=== PATIENT | female | born 1985 | race Caucasian/White ===

== ENCOUNTER 2025-04-30 21:23 | Emergency (ER) | payer OTHER, SELFPAY ==
[2025-04-30 21:29] VITALS: BP 140/94
[2025-04-30 22:22] VITALS: BP 129/103
[2025-04-30 22:53] VITALS: BP 117/86
[2025-04-30 22:55] VITALS: BP 134/91
[2025-04-30 22:57] VITALS: BP 117/86; BP 134/91; BP 134/95; PULSE 79; PULSE 81; PULSE 85
[2025-04-30 23:00] VITALS: BP 124/85
[2025-05-01] VITALS: BP 108/81
[2025-05-01] MEDS: ANTIVERT 25 MG PO (00:26)
--- NOTE | 2025-05-01 00:32 | ED.GENMED ---
History of Present Illness
General
Chief Complaint: Dizziness
Source: patient
Exam Limitations: none
Time Seen by Provider: 04/30/25 21:37
Nursing documentation reviewed up to this point in time: agreed with
History of Present Illness
History of Present Illness:
The patient is a pleasant 39-year-old female reports a feeling of lightheadedness and dizziness intermittently over the last 3 days. Patient reports it is worse when she moves her head quickly and changes position. Patient describes it as a
feeling of dizziness and mild nausea. Patient denies headache, sore throat and recent fever. She denies vomiting and diarrhea. She denies vision changes. She denies ear pain and ringing of ears. Patient reports that about a week ago she was
given misoprostol to have a chemical . Patient reports that it has caused a 4 to 5 days of vaginal bleeding but she has not had any vaginal bleeding over the last 1 to 2 days. Patient was evaluated prior to the ED at urgent care today.
She underwent blood work which showed a normal hemoglobin of 13.4, normal white blood cell count, and normal platelet count. Patient had a normal sodium at urgent care. She did have a potassium that was low at 3.3. She had normal renal function.
Patient's urine test at urgent care was negative. Patient reports she was still a little nervous so decided to go to the ED.
Past History
Past History
ED Past Medical History: Other (Hypothyroid)
ED Past Surgical History: Other
Social History
Tobacco: Non-smoker
Alcohol: None
Drug: None
Personal: Other
Living: with family
Employment: Other
Family History
Family History: Other
Review of Systems
Review of Systems
Allergies reviewed?: Yes
All Other Systems: ROS reviewed and negative except as documented in HPI and ROS
Constitutional: Reports no symptoms
EENT: Reports no symptoms
Respiratory: Reports no symptoms
Cardiac: Reports syncope (Presyncopal)
ABD/GI: Reports no symptoms
: Reports bleeding
Musculoskeletal: Reports no symptoms
Skin: Reports no symptoms
Neurological: Reports dizzy
Endocrine: Reports no symptoms
Hematologic/Lymphatic: Reports no symptoms
Psychiatric: Reports no symptoms
Phy Exam
Physical Exam
Physical Exam:
Physical Exam
General: no apparent distress, not acutely ill. Normal and well-appearing
Neck: supple. no meningeal signs. normal psoterior pharynx. TMs appear normal bilaterally
Heart: s1/s2 regular rate and rhythm, no murmur. equal radial pulses.
Lungs: no acute respiratory distress. clear bilaterally
Abdomen: normal bowel sounds. not tender. no CVAT
Neuro: alert and oriented. no focal neurological deficits. Visual cavazos intact. Normal gait. Normal finger-nose. 5 out of 5 strength in all extremities
Skin: no rash
Psychiatric: well kept. interactive and cooperative
Extremities: no edema. no calf tenderness. negative homans. good distal pulses
Course
Orders/Labs/Results
Orders:
Orders
04/30/25 21:32
Electrocardiogram (*1) Urgent
Reason for Study: Vertigo / Dizzy
EKG- Treatment ONCE
05/01/25 00:17
Meclizine [Antivert] 25 mg PO NOW STA
Vital Signs
Initial and Last Documented VS:
Initial Vital Signs
Temp Pulse Resp BP Pulse Ox
98 F 71 18 140/94 100
04/30/25 21:29 04/30/25 21:29 04/30/25 21:29 04/30/25 21:29 04/30/25 21:29
Last Documented Vital Signs
Temp Pulse Resp BP Pulse Ox
98 F 80 22 108/81 99
04/30/25 21:29 05/01/25 00:00 05/01/25 00:00 05/01/25 00:00 05/01/25 00:00
MDM/Problems Addressed
Differential Diagnosis Includes:
Benign positional vertigo, symptomatic anemia due to vaginal bleeding, acute dehydration, orthostatic hypotension
MDM/Problems Addressed:
Patient presents with feelings of lightheadedness and dizziness
*Pulse Oximetry
Patient hypoxic: no
*EKG
Interpreted by ED Provider?: Yes
Interpretation: normal
Comparison EKG: no comparison EKG present
Rate: normal
Rhythm: sinus
Homer: normal axis
Interval: normal interval
QRS Pattern: normal QRS
Ischemia: no ischemia
*Electrician Manager Interpretation
Rate: normal
Interpretation: normal
Rhythm: sinus
*Critical Care Note
Total Time (30-74mins, 75-104mins- exclusive of procedures): Not Applicable
Data Reviewed
Review of Other/Old Records Reveals: Labs (Labs reviewed from urgent care which show a normal CBC and normal BMP with exception of a potassium of 3.3)
Source: patient
Patient Management
Social determinants of health affecting care: Living situation and Strong social support
Escalation/DeEscalation of care consider admission/obs:
Patient looks extremely well and comfortable. She has a steady gait and normal neurological exam therefore I do not think we need to do an emergent CT. Patient did not have tachycardia or become hypotensive with standing up, therefore, I do not
think she needs IV fluids and she is able to drink fluids. It is unclear with causing her dizziness. Given she describes a feeling of dizziness with intermittent nausea, I will treat her for possible vertigo.
ED Attending Note
-
Portions of this chart may have been created with voice recognition software.� Occasional wrong word or��sound alike� substitutions may have occurred due to the inherent limitations of voice recognition software.
Discharge Plan
Departure
Patient Disposition: Home (Routine Discharge)
Date of Disposition: 05/01/25
Time of Disposition: 00:17
Patient with high blood pressure during this ER visit?: Yes
Condition: Good
Covid-19: Not Applicable
Discharge Problem:
Dizziness
Instructions: Dizziness, BLOOD PRESSURE
Prescriptions:
New
meclizine 25 mg tablet
25 mg PO BID PRN (Reason: dizziness) Qty: 7 0RF
Referrals:
UNKNOWN,NO INTERVIEW [Family Provider]
Activity Restrictions/Additional Instructions:
Follow-up with your primary care doctor in 2 to 3 days if you are not feeling better
Interventions
Interventions:
*Risk Screen - Suicide Last Done: 04/30/25 22:00
*General Assessment Last Done: 04/30/25 22:00
*Neglect/Abuse Screening Last Done: 04/30/25 22:00
*ED COVID-19 Vaccine History Last Done: 04/30/25 22:00
*Nursing Disposition Last Done: 05/01/25 00:31
ED- Neurological Assessment Last Done: 04/30/25 22:00
Discharge Date and Time
Discharge Date/Time: 05/01/25 00:44
Print Language: SLOVENIAN
== END 2025-05-01 00:44 | disposition home or self-care (01) ==
LOC: EMR 21:23
PROVIDERS: EMERGENCY PHYSICIAN Emergency Medicine
DX: R42 Dizziness and giddiness (principal); E03.9 Hypothyroidism, unspecified
CPT/HCPCS: 99283; 93005